=== PATIENT | male | born 1950 | race Caucasian/White ===

== ENCOUNTER 2016-08-14 13:37 | Inpatient (IN) | payer MEDICARE, MEDICAID ==
[~2016-08-14] VITALS: Ht 172.7 cm; Wt 68.5 kg
[2016-08-14 16:33] LABS: BASOPHIL % 0.7 % (0-2); PLATELET COUNT 204 x10^3mcL (130-400); RED CELL DISTRIBUTION WIDTH 13.7 % (11.5-14.5)
[2016-08-14 16:42] LABS: CALCIUM 8.8 mg/dL (8.5-10.1); CARBON DIOXIDE 27.5 mmol/L (21-32); CREATININE SERUM 1.6 mg/dL (0.7-1.3); POTASSIUM SERUM 4.1 mmol/L (3.5-5.1)
[2016-08-14 16:47] LABS: BILIRUBIN TOTAL 0.6 mg/dL (0.20-1.00); TOTAL PROTEIN, SERUM 7.6 g/dL (6.4-8.2)
[2016-08-14 16:57] LABS: FREE T4 1.13 ng/dL (0.76-1.46); FREE THYROXINE INDEX 2.4 ug/dL (1.4-4.5); T4(THYROXINE) 5.9 ug/dL (4.7-13.3)
[2016-08-14 17:02] LABS: T3 TOTAL 0.69 ng/mL
[2016-08-14 17:25] LABS: CHOLESTEROL/HDL RATIO 3.4
[2016-08-14 17:28] VITALS: BP 123/61
[2016-08-14 19:50] VITALS: BP 128/68
[2016-08-14 20:30] LABS: microscopic required? YES; urine erythrocyte TRACE (NEGATIVE)
[2016-08-14 20:41] LABS: AMPHETAMINE QUAL UR NONE DETECTED (NEG <=1000)
[2016-08-14 21:36] VITALS: BP 132/43
[2016-08-15 06:08] VITALS: BP 104/57
[2016-08-15 08:29] LABS: BASOPHIL % 0.4 % (0-2); PLATELET COUNT 180 x10^3mcL (130-400); RED CELL DISTRIBUTION WIDTH 13.3 % (11.5-14.5)
[2016-08-15 09:16] LABS: SODIUM SERUM 137 mmol/L (136-145)
[2016-08-15 09:17] LABS: CALCIUM 8.3 mg/dL (8.5-10.1); CARBON DIOXIDE 26.4 mmol/L (21-32); CHLORIDE SERUM 103 mmol/L (98-107); CREATININE SERUM 1.2 mg/dL (0.7-1.3); GFR1 > 60 mL/min; GLUCOSE SERUM 182 mg/dL (74-106); PHOSPHOROUS 3.6 mg/dL (2.5-4.9)
[2016-08-15 09:19] LABS: MAGNESIUM 1.5 mg/dL (1.8-2.4)
[2016-08-15 09:35] VITALS: BP 140/57
[2016-08-15 17:25] VITALS: BP 106/43
[2016-08-15 21:25] VITALS: BP 99/49
[2016-08-16 05:46] VITALS: BP 114/48
[2016-08-16 07:17] LABS: BASOPHIL % 0.2 % (0-2); PLATELET COUNT 137 x10^3mcL (130-400); RED CELL DISTRIBUTION WIDTH 13.4 % (11.5-14.5)
[2016-08-16 07:34] LABS: CALCIUM 8.3 mg/dL (8.5-10.1); CARBON DIOXIDE 24.1 mmol/L (21-32); CREATININE SERUM 1.6 mg/dL (0.7-1.3); MAGNESIUM 2.7 mg/dL (1.8-2.4)
[2016-08-16 07:47] LABS: ALBUMIN 2.3 g/dL (3.4-5.0)
[2016-08-16 08:23] VITALS: BP 96/29; BP 96/59
[2016-08-16 11:53] VITALS: Ht 172.7 cm; Wt 68.5 kg
[2016-08-16 13:18] VITALS: BP 122/54
[2016-08-16 17:52] VITALS: BP 120/68
[2016-08-16 20:32] VITALS: BP 104/44
[2016-08-17 06:32] LABS: BASOPHIL % 0.1 % (0-2); PLATELET COUNT 169 x10^3mcL (130-400); RED CELL DISTRIBUTION WIDTH 13.3 % (11.5-14.5)
[2016-08-17 06:49] LABS: CALCIUM 8.1 mg/dL (8.5-10.1); CARBON DIOXIDE 22.5 mmol/L (21-32); CREATININE SERUM 1.5 mg/dL (0.7-1.3); MAGNESIUM 2.2 mg/dL (1.8-2.4); PHOSPHOROUS 3.2 mg/dL (2.5-4.9); POTASSIUM SERUM 4.3 mmol/L (3.5-5.1)
[2016-08-17 07:45] VITALS: BP 162/70
[2016-08-17 09:18] VITALS: BP 123/56
[2016-08-17 18:11] VITALS: BP 169/63
[2016-08-17 20:47] VITALS: BP 141/37
[2016-08-18 05:58] VITALS: BP 152/51
[2016-08-18 06:58] LABS: BASOPHIL % 0.1 % (0-2); PLATELET COUNT 181 x10^3mcL (130-400); RED CELL DISTRIBUTION WIDTH 13.3 % (11.5-14.5)
[2016-08-18 07:35] LABS: CALCIUM 8.5 mg/dL (8.5-10.1); CARBON DIOXIDE 23.3 mmol/L (21-32); CHLORIDE SERUM 108 mmol/L (98-107); CREATININE SERUM 1.2 mg/dL (0.7-1.3); GFR1 > 60 mL/min; MAGNESIUM 1.8 mg/dL (1.8-2.4); PHOSPHOROUS 3.4 mg/dL (2.5-4.9); POTASSIUM SERUM 4.1 mmol/L (3.5-5.1); SODIUM SERUM 140 mmol/L (136-145)
[2016-08-18 09:52] VITALS: BP 153/43; BP 160/60
[2016-08-18] MEDS ORDERED: ENALAPRIL MALEA10 MG PO (10:04)
[2016-08-18] MEDS ORDERED: HYDRALAZINE HCL50 MG PO (10:04)
[2016-08-18] MEDS ORDERED: ATORVASTATIN CA20 M1 PO (10:05)
[2016-08-18] MEDS ORDERED: METFORMIN HCL850 MG PO (10:12)
[2016-08-18] MEDS ORDERED: CILOSTAZOL100 M1 PO (10:14)
[2016-08-18] MEDS ORDERED: ECO81 PO (10:47)
[2016-08-18] MEDS ORDERED: LEVEMIR100 U/M1 SQ (10:48)
[2016-08-18] MEDS ORDERED: COL100 PO (10:49)
[2016-08-18] MEDS ORDERED: THERA TABS1 TAB PO (10:49)
[2016-08-18] MEDS ORDERED: LAC PO (10:49)
[2016-08-18] MEDS ORDERED: NOR10T PO ×2 (10:51→10:56)
[2016-08-18] MEDS ORDERED: NOVAPLUS MEROP500 MG IV (12:54)
[2016-08-18] MEDS ORDERED: BG FS (12:58)
[2016-08-18 13:51] VITALS: BP 129/60
[2016-08-18 14:19] LABS: GLUCOSE SERUM 57 mg/dL (74-106)
[2016-08-18 14:52] VITALS: BP 129/60
== END 2016-08-18 18:34 | DRG 255 ==
LOC: ED 13:37 → DU 15:57 → MU 15:57 → DU 17:08 → MU 08-16 15:53
PROVIDERS: Emergency Medicine; Family Medicine; Podiatrist; ADMIT Family Medicine
PROC: 0Y6S0Z0 Detachment at Left 2nd Toe, Complete, Open Approach (ICD-10-PCS; principal; 2016-08-15 13:00)
PROC: 0Y9N0ZZ Drainage of Left Foot, Open Approach (ICD-10-PCS; 2016-08-18)
DX: E11.52 Type 2 diabetes mellitus with diabetic peripheral angiopathy with gangrene (principal); N17.0 Acute kidney failure with tubular necrosis; E44.0 Moderate protein-calorie malnutrition; E87.1 Hypo-osmolality and hyponatremia; M86.9 Osteomyelitis, unspecified; L02.612 Cutaneous abscess of left foot; E11.621 Type 2 diabetes mellitus with foot ulcer; L97.529 Non-pressure chronic ulcer of other part of left foot with unspecified severity; B96.1 Klebsiella pneumoniae [K. pneumoniae] as the cause of diseases classified elsewhere; B96.89 Other specified bacterial agents as the cause of diseases classified elsewhere; M81.0 Age-related osteoporosis without current pathological fracture; E11.65 Type 2 diabetes mellitus with hyperglycemia; E11.42 Type 2 diabetes mellitus with diabetic polyneuropathy; E83.42 Hypomagnesemia; E83.51 Hypocalcemia; J98.4 Other disorders of lung; D64.9 Anemia, unspecified; Z68.23 Body mass index [BMI] 23.0-23.9, adult; Z79.4 Long term (current) use of insulin; Z16.12 Extended spectrum beta lactamase (ESBL) resistance
CPT/HCPCS: 80307; 83880; 84439; 94150; 97116-GP; 97530-GP; J1170; J1815; J1885; J1956; J2001; J2175; J2185; J2270; J2543; J3010; J3370; J3475; J3490; J7030; J7042; J7070; Q0092